=== PATIENT | female | born 1970 | race Caucasian/White ===

== ENCOUNTER 2022-02-22 06:59 | Day surgery (SDC) | payer OTHER ==
[2022-02-22] MEDS ORDERED: Lactated Ringers 1,000 ML IV SCH (07:30)
[2022-02-22] MEDS ORDERED: KEFZOL 1 GM** 3 G in Sodium Chloride 0.9% 50 ML 50 ML IV SCH (07:30)
[2022-02-22] MEDS ORDERED: Lactated Ringers 1,000 ML IV ONE (07:44)
[2022-02-22] MEDS ORDERED: Pepcid 20 MG VIAL IV ONE ×2 (08:00→08:03)
[2022-02-22] MEDS ORDERED: Reglan 10 MG/2 ML IV ONE (08:00)
[2022-02-22] MEDS ORDERED: Reglan 10 MG/2 ML ONE (08:03)
[2022-02-22] MEDS ORDERED: Versed 2 MG/2 ML Injection ONE (09:14)
[2022-02-22] MEDS ORDERED: Decadron 4 MG INJ ONE (09:14)
[2022-02-22] MEDS ORDERED: DIPRIVAN 200 MG/20 ML IV ONE (09:14)
[2022-02-22] MEDS ORDERED: Zofran 4 MG/2 ML VIAL ONE (09:14)
[2022-02-22] MEDS ORDERED: Xylocaine-Mpf 2% 5 Ml Vial ONE ×2 (09:14→09:32)
[2022-02-22] MEDS ORDERED: SUBLIMAZE 100 MCG/2 ML ONE (09:14)
[2022-02-22 11:06] VITALS: O2SAT 94
[2022-02-22 11:40] VITALS: BP 166/89; PULSE 94
--- NOTE | 2022-02-23 09:00 | OP ---
SURGERY DATE/TIME: 02/22/2022 0925 PREOPERATIVE DIAGNOSIS: Post-menopausal bleeding. POSTOPERATIVE DIAGNOSIS: Post-menopausal bleeding. PROCEDURE: Hysteroscopy D&C. SURGEON: Antoine Martinez D.O. RUG SIZER: Aj Suazo director surgical. ANESTHESIA: General. ESTIMATED BLOOD LOSS: Minimal. COMPLICATIONS: None. INDICATIONS: The risks, benefits, indications and alternatives of the procedure were reviewed with the patient prior to the procedure. The patient understood the risk of infection, bleeding, bowel injury, bladder injury and uterine perforation associated with this surgery and desires to have this surgery as a possible means to alleviate her current medical condition. DESCRIPTION OF PROCEDURE AND FINDINGS: At this point the patient is taken to the operating room, given general sedation, placed in dorsal lithotomy position, prepped and draped in the usual sterile fashion. A weighted speculum is then placed in the patient's vagina and the anterior lip of the cervix is grasped with a single tooth tenaculum. Endocervical dilators were advanced through the endocervical canal as a means to dilate the cervix and a 5 mm hysteroscope was then placed in through the cervical canal where visualization revealed no gross abnormalities. From this point the hysteroscope was removed and the curette was then placed into the fundus of the uterus and curettage is performed in all quadrants of the uterus retrieving mild to moderate amount of endometrial tissue. From this point hemostasis was obtained. At this point at this point all instruments were subsequently then removed from the patient's vaginal region. The patient was then taken out of dorsal lithotomy position and was then taken to the recovery room in stable condition.
== END 2022-02-22 11:30 | disposition home or self-care (01) ==
LOC: SDC 06:59
PROVIDERS: ATTEND Obstetrics & Gynecology
DX: N95.0 Postmenopausal bleeding (principal)
CPT/HCPCS: J0690; J1100; J2250; J2405; J2704; J3010

== ENCOUNTER 2022-08-20 08:42 | Emergency (ER) | payer OTHER ==
--- NOTE | 2022-08-20 08:48 | ERPHSYRPT ---
- History of Present Illness Time Seen by Provider: 08/20/22 08:48 Source: patient Exam Limitations: no limitations Physician History: This is a 52-year-old overweight white female who presents with left lower molar tenderness with some swelling of the left cheek in the mandibular area. Patient states that there is pain with mastication. She has not had a fever. The symptoms have been present for approximately 4 to 5 days. Severity: mild ENT Location: dental Prearrival Treatment: no prearrival treatment Modifying Factors: Improves With: other (Chewing worsens) Associated Symptoms: facial pain/swelling (Left side mandibular swelling that is mild but present), tooth pain (Left lower molars), No difficulty swallowing Allergies/Adverse Reactions: No Known Drug Allergies Allergy (Verified 08/20/22 08:54) Home Medications: Aspirin [Aspirin EC] 81 mg PO DAILY 02/15/22 [History] Cetirizine HCl [Zyrtec] 10 mg PO DAILY 02/15/22 [History] Ergocalciferol (Vitamin D2) [Vitamin D2] 50,000 unit PO Q7D 02/15/22 [History] Escitalopram Oxalate [Lexapro] 10 mg PO DAILY 02/15/22 [History] Famotidine 20 mg [Pepcid 20 MG] 40 mg PO DAILY 02/15/22 [History] Ferrous Sulfate 325 mg [Feosol 325 mg] 325 mg PO TID 02/15/22 [History] Travel Risk - International Travel Have you traveled outside of the country in past 3 weeks: No - Coronavirus Screening Are you exhibiting any of the following symptoms?: No Close contact with a COVID-19 positive Pt in past 14-21 Days: No - Review of Systems Constitutional: No Symptoms Eyes: No Symptoms Ears, Nose, & Throat: Other (Dental pain left lower molars) Respiratory: No Symptoms Cardiac: No Symptoms Abdominal/Gastrointestinal: No Symptoms Genitourinary Symptoms: No Symptoms Musculoskeletal: No Symptoms Skin: No Symptoms Neurological: No Symptoms Psychological: No Symptoms Endocrine: No Symptoms Hematologic/Lymphatic: No Symptoms Immunological/Allergic: No Symptoms All Other Systems: Reviewed and Negative - Past Medical History Pertinent Past Medical History: Yes Neurological History: No Pertinent History ENT History: No Pertinent History Cardiac History: No Pertinent History Respiratory History: No Pertinent History Endocrine Medical History: No Pertinent History GI Medical History: GERD History: No Pertinent History Psycho-Social History: Anxiety Female Reproductive Disorders: No Pertinent History - Past Surgical History Past Surgical History: No - Social History Smoking Status: Never smoker Exposure to second hand smoke: Yes Drug Use: none - Physical Exam General Appearance: no apparent distress, alert, obese Eye Exam: bilateral eye: normal inspection, PERRL, EOMI Ear Exam: bilateral ear: auricle normal Nasal Exam: normal inspection Throat Exam: pharynx normal, dental tenderness (Left lower molars), mandibular swelling (Mild left side), moist mucus membranes Neck Exam: normal inspection, non-tender, supple, full range of motion Cardiovascular/Respiratory Exam: chest non-tender, no respiratory distress Abdominal Exam: non-tender Neurologic Exam: alert, oriented x 3, cooperative, lactation nurse II-XII nml as tested, normal mood/affect, nml cerebellar function, nml station & gait, sensation nml Skin Exam: normal color, warm, dry SpO2 Interpretation: normal O2 Delivery: Room Air - Course Nursing assessment & vital signs reviewed: Yes Ordered Tests: Medication Summary Discontinued Medications Generic Name Dose Route Start Last Admin Trade Name Tyrelq PRN Reason Stop Dose Admin Amoxicillin 500 mg 08/20/22 08:59 Amoxicillin Trihydrate 500 Mg Capsule PO 08/20/22 09:00 STAT ONE - Progress Progress: unchanged Counseled pt/family regarding: diagnosis, need for follow-up - Departure Departure Disposition: Home Clinical Impression: Pain due to dental caries Condition: Stable Critical Care Time: No Referrals: JESIKA ELAINE [Primary Care Provider] - Follow up/PCP as directed Additional Instructions: Use Tylenol, ibuprofen and over the counter dental pain topical agents. Make an appointment with a dentist for definitive care. Take your antibiotics as prescribed Prescriptions: Amoxicillin 500 mg Cap [Amoxil 500 mg] 500 mg PO TID #30 cap
[2022-08-20] MEDS ORDERED: AMOXIL 500 MG PO ONE (08:59)
[2022-08-20 09:00] VITALS: BP 178/96; PULSE 87; O2SAT 96
[2022-08-20] MEDS ORDERED: AMOXIL 500 MG ONE (09:01)
== END 2022-08-20 09:18 | disposition home or self-care (01) ==
LOC: ED 08:42
DX: K02.9 Dental caries, unspecified (principal); K08.89 Other specified disorders of teeth and supporting structures; Z79.899 Other long term (current) drug therapy
CPT/HCPCS: 99281; A9270-GY

== ENCOUNTER 2022-10-03 12:09 | Emergency (ER) | payer OTHER ==
[2022-10-03 13:29] VITALS: BP 174/90; PULSE 84
[2022-10-03] MEDS ORDERED: TORAdol 30 mg Injection ONE (13:29)
[2022-10-03] MEDS: TORAdol 30 mg Injection IM ONE (13:29)
[2022-10-03 13:33] VITALS: O2SAT 96
--- NOTE | 2022-10-03 13:33 | ERPHSYRPT ---
- History of Present Illness Source: patient Exam Limitations: no limitations Patient Subjective Stated Complaint: pt states "I have an appointment to have a tooth pulled and a cavity filled on October 13." Triage Nursing Assessment: pt ambulated into the er; pt is axo x4; c/o toothache; pt states 6/10 pain to left lower jaw; tooth caries present; no swelling or redness present; mucus membrane pink and moist; hypertension Physician History: 52 yo WF w dental pain x 3 days. Pt states that the pain is 8/10 and worse w chewing. She denies fever and acute dental injury. Pain is located inferior L 2nd molar. Timing/Duration: abrupt onset Severity: severe ENT Location: dental Prearrival Treatment: over the counter meds Modifying Factors: Improves With: other (Worse w chewing) Associated Symptoms: tooth pain, No ear pain (R), No ear pain (L), No cough, No fever, No chills, No change in hearing, No dizziness, No drooling, No ear drainage, No facial pain/swelling, No headache, No hearing loss, No jaw pain, No malaise, No motion sickness, No nasal congestion/drainage, No epistaxis, No ashlee al foreign body, No neck pain, No poor fluid intake, No poor solids intake, No ringing of ears, No swollen glands, No sinus infection, No sore throat, No difficulty swallowing, No voice change Allergies/Adverse Reactions: No Known Drug Allergies Allergy (Verified 10/03/22 12:49) Home Medications: Aspirin [Aspirin EC] 81 mg PO DAILY 02/15/22 [History] Cetirizine HCl [Zyrtec] 10 mg PO DAILY 02/15/22 [History] Ergocalciferol (Vitamin D2) [Vitamin D2] 50,000 unit PO Q7D 02/15/22 [History] Escitalopram Oxalate [Lexapro] 10 mg PO DAILY 02/15/22 [History] Famotidine 20 mg [Pepcid 20 MG] 40 mg PO DAILY 02/15/22 [History] Ferrous Sulfate 325 mg [Feosol 325 mg] 325 mg PO TID 02/15/22 [History] Hx Tetanus, Diphtheria Vaccination/Date Given: No (unsure) Hx Influenza Vaccination/Date Given: No Hx Pneumococcal Vaccination/Date Given: No Travel Risk - International Travel Have you traveled outside of the country in past 3 weeks: No - Coronavirus Screening Are you exhibiting any of the following symptoms?: No Close contact with a COVID-19 positive Pt in past 14-21 Days: No - Vaccine Status Have you recieved a Covid-19 vaccination: Yes Digital Hardware Design Engineer: [employer] - Review of Systems Constitutional: No Symptoms Eyes: No Symptoms Respiratory: No Symptoms Cardiac: No Symptoms Abdominal/Gastrointestinal: No Symptoms Genitourinary Symptoms: No Symptoms Musculoskeletal: No Symptoms Skin: No Symptoms Neurological: No Symptoms Psychological: No Symptoms Endocrine: No Symptoms Hematologic/Lymphatic: No Symptoms Immunological/Allergic: No Symptoms - Past Medical History Pertinent Past Medical History: Yes Neurological History: No Pertinent History ENT History: No Pertinent History Cardiac History: No Pertinent History Respiratory History: No Pertinent History Endocrine Medical History: No Pertinent History GI Medical History: GERD History: No Pertinent History Psycho-Social History: Anxiety Female Reproductive Disorders: No Pertinent History - Past Surgical History Past Surgical History: No - Social History Smoking Status: Never smoker Exposure to second hand smoke: Yes Drug Use: none Patient Lives Alone: No - Nursing Vital Signs Nursing Vital Signs: Initial Vital Signs Temperature 98.3 F 10/03/22 12:50 Pulse Rate 85 10/03/22 12:50 Respiratory Rate 20 10/03/22 12:50 Blood Pressure 182/97 10/03/22 12:50 O2 Sat by Pulse Oximetry 96 10/03/22 12:50 Pain Scale Pain Intensity 6 Hypertensive - Physical Exam General Appearance: no apparent distress Eye Exam: bilateral eye: normal inspection, PERRL, EOMI Ear Exam: bilateral ear: auricle normal, canal normal, TM normal Nasal Exam: normal inspection Throat Exam: pharynx normal, dental tenderness (L inferior 2nd molar TTP), moist mucus membranes, voice changes, No excessive drooling, No foreign body, No mandibular swelling, No maxillary swelling, No pharynx swelling, No pharynx tenderness, No tongue swollen, No tonsillar exudate, No tonsillar swelling, No trismus, No uvula swelling Neck Exam: normal inspection Cardiovascular/Respiratory Exam: normal breath sounds, regular rate/rhythm, heart sounds normal Abdominal Exam: non-tender, soft Neurologic Exam: alert, oriented x 3, cooperative, [employer] team member II-XII nml as tested, normal mood/affect, nml cerebellar function, nml station & gait, sensation nml Skin Exam: normal color, warm, dry SpO2 Interpretation: normal SpO2: 96 O2 Delivery: Room Air - Course Nursing assessment & vital signs reviewed: Yes Ordered Tests: Medication Summary Discontinued Medications Generic Name Dose Route Start Last Admin Trade Name Freq PRN Reason Stop Dose Admin Ketorolac Tromethamine 30 mg 10/03/22 13:27 10/03/22 13:29 Ketorolac Tromethamine 30 Mg/Ml Inj IM 10/03/22 13:28 30 mg STAT ONE Administration Ketorolac Tromethamine Confirm 10/03/22 13:29 Ketorolac Tromethamine 30 Mg/Ml Inj Administered 10/03/22 13:30 Dose 30 mg .ROUTE [facility] - Progress Progress Note: 10/03/22 13:31 30mg IM Toradol Counseled pt/family regarding: diagnosis, need for follow-up - Departure Departure Disposition: Home Clinical Impression: Pain, dental Condition: Stable Critical Care Time: No Referrals: JESIKA ELAINE [Primary Care Provider] - Follow up/PCP as directed Instructions: Tooth Abscess (DC), Dental Pain (DC) Additional Instructions: Dentist MERE Return to ER as needed Toradol for pain Start penicillin Prescriptions: Penicillin V Potassium 500 mg PO TID 7 Days #21 tablet Ketorolac Trometh 10 mg Tab [TORAdol 10 MG TABLET] 10 mg PO TID PRN #10 tablet
== END 2022-10-03 13:40 | disposition home or self-care (01) ==
LOC: ED 12:09
DX: K08.89 Other specified disorders of teeth and supporting structures (principal); Z79.899 Other long term (current) drug therapy
CPT/HCPCS: 96372; 99282; J1885

== ENCOUNTER 2024-07-06 18:47 | Emergency (ER) | payer OTHER ==
[2024-07-06 19:36] VITALS: BP 187/81; PULSE 104; RESP 20; TEMP 95.8; O2SAT 97
[2024-07-06] MEDS: MYCOLOG TOP STA (19:47)
--- NOTE | 2024-07-06 19:52 | ERPHSYRPT ---
- History of Present Illness Time Seen by Provider: 07/06/24 19:06 Source: patient Exam Limitations: no limitations Patient Subjective Stated Complaint: pt states pain buttock. states rash Triage Nursing Assessment: pt ambulated into the er; pt is axo x4; c/o rash; pt states 6/10 pain to buttock; rash present to buttock; area to buttock is moist, red; no respiratory distress present; hypertension; tachycardic Physician History: 53 years old female morbidly obese presented in the ER with complains of buttock rash. Patient reports for the last 2 to 3 days she noticed increasing pain around anus/ed cleft on the medial side of the buttocks. It hurts to move. Denies any bleeding. Denies any anal pain or swelling. Patient has bilateral inner buttocks erythema, moist, tender to touch. No skin break. Patient is recommended to keep it clean dry and will start on antifungal along with triamcinolone. Outpatient follow-up recommended. Discussed signs symptoms of worsening needing return to ER which she seems understanding. Stable for discharge. Allergies/Adverse Reactions: No Known Drug Allergies Allergy (Verified 07/06/24 19:09) Home Medications: Aspirin [Aspirin EC] 81 mg PO DAILY 02/15/22 [History] Ergocalciferol (Vitamin D2) [Vitamin D2] 50,000 unit PO Q7D 02/15/22 [History] Famotidine 20 mg [Pepcid 20 MG] 40 mg PO DAILY 02/15/22 [History] Ferrous Sulfate 325 mg [Feosol 325 mg] 325 mg PO QID 02/15/22 [History] Albuterol Sulfate [Albuterol Sulfate Hfa] 4 puff IH Q4HPRN PRN 07/06/24 [History] Buspirone HCl 5 mg [Buspar 5 mg] 5 mg PO BID 07/06/24 [History] Fexofenadine HCl 180 mg PO DAILY 07/06/24 [History] glyBURIDE [Glyburide] 1.25 mg PO DAILY 07/06/24 [History] lisinopriL [Zestril] 2.5 mg PO DAILY 07/06/24 [History] Hx Tetanus, Diphtheria Vaccination/Date Given: No (unsure) Hx Influenza Vaccination/Date Given: No Hx Pneumococcal Vaccination/Date Given: No Immunizations Up to Date: No Travel Risk - International Travel Have you traveled outside of the country in past 3 weeks: No - Emerging Infectious Disease Are you exhibiting symptoms associated with any current EIDs: Yes Comment: covid 1 month ago - Review of Systems Constitutional: No Symptoms Respiratory: No Symptoms Cardiac: No Symptoms Abdominal/Gastrointestinal: No Symptoms Genitourinary Symptoms: No Symptoms Musculoskeletal: No Symptoms Skin: Rash Neurological: No Symptoms Endocrine: No Symptoms Hematologic/Lymphatic: No Symptoms - Past Medical History Pertinent Past Medical History: Yes Neurological History: No Pertinent History ENT History: No Pertinent History Cardiac History: No Pertinent History Respiratory History: No Pertinent History Endocrine Medical History: No Pertinent History GI Medical History: GERD History: No Pertinent History Psycho-Social History: Anxiety Female Reproductive Disorders: No Pertinent History - Past Surgical History Past Surgical History: No - Female History Hx Now: No - Social History Smoking Status: Never smoker Exposure to second hand smoke: Yes Drug Use: none Patient Lives Alone: No - Social Determinants of Health Will the patient participate in the screening: Yes Do you worry about a steady place to live?: No Do you have any problems with any of the following?: No known problems In the past 12 months,have you had to go without utilities?: No Transportation Issues: No Has anyone in your support network made you feel unsafe?: No Have you or anyone in your house had to go without enough: No - Nursing Vital Signs Nursing Vital Signs: Initial Vital Signs Temperature 95.8 F 07/06/24 19:15 Pulse Rate 104 H 07/06/24 19:15 Respiratory Rate 20 07/06/24 19:15 Blood Pressure 187/81 07/06/24 19:15 O2 Sat by Pulse Oximetry 97 07/06/24 19:15 Pain Scale Pain Intensity 6 - Physical Exam General Appearance: no apparent distress Eye Exam: PERRL/EOMI Ears, Nose, Throat Exam: normal ENT inspection Neck Exam: normal inspection, full range of motion Respiratory Exam: normal breath sounds, lungs clear Cardiovascular Exam: regular rate/rhythm, normal heart sounds Rectal Exam: other (Bilateral interestingly the beginning of buttocks this is around in his area of erythema, moist mildly tender) Extremity Exam: normal inspection, normal range of motion Neurologic Exam: alert, oriented x 3, cooperative Skin Exam: rash SpO2 Interpretation: normal SpO2: 97 O2 Delivery: Room Air Ordered Tests: Medication Summary Discontinued Medications Generic Name Dose Route Start Last Admin Trade Name Estella PRN Reason Stop Dose Admin Nystatin/Triamcinolone Acetonide 15 gm 07/06/24 19:23 Nystatin/Triamcin 15 Gm Cream Tube TOP 07/06/24 19:24 BID STA - Progress Progress: unchanged Progress Note: 07/06/24 19:55 53 years old female morbidly obese presented in the ER with complains of buttock rash. Patient reports for the last 2 to 3 days she noticed increasing pain around anus/ed cleft on the medial side of the buttocks. It hurts to move. Denies any bleeding. Denies any anal pain or swelling. Patient has bilateral inner buttocks erythema, moist, tender to touch. No skin break. Patient is recommended to keep it clean dry and will start on antifungal along with triamcinolone. Outpatient follow-up recommended. Discussed signs symptoms of worsening needing return to ER which she seems understanding. Stable for discharge. Counseled pt/family regarding: diagnosis, need for follow-up Medical Desision Making - Diagnostic Testing Diagnostic test were ordered, analyzed, and reviewed by me: No - Risk of complications The pt has a mod risk of morbidity or mortality based on: Need for prescription drug management - Departure Departure Disposition: Home Clinical Impression: Perianal rash, Yeast infection of the skin Condition: Stable Critical Care Time: No Referrals: JESIKA ELAINE [Primary Care Provider] - Follow up with PCP 1 day Instructions: Vaginal Yeast Infection, Adult ED Prescriptions: Nystatin/Triamcin Cream 60 gm* [Mycolog Cream 60 gm] 60 gm TP BID 10 Days #1 tu
== END 2024-07-06 20:13 | disposition home or self-care (01) ==
LOC: ED 18:47
DX: R21 Rash and other nonspecific skin eruption (principal); B37.2 Candidiasis of skin and nail; Z79.84 Long term (current) use of oral hypoglycemic drugs; Z79.899 Other long term (current) drug therapy
CPT/HCPCS: 99281; A9270-GY